=== PATIENT | female | born 1950 | race Two or more races ===

== ENCOUNTER 2018-10-12 05:30 | Day surgery (SDC) | payer OTHER ==
[~2018-10-12 05:30] MED LIST: ATIVAN2 M1 PO; LOSARTAN-HCTZ1 EAC1 PO; PAXIL20 MG PO; ZANTAC300 MG PO
[2018-10-12] MEDS ORDERED: ULTRACET PO (12:02)
[2018-10-12] MEDS ORDERED: KEFLEX250 MG PO (12:02)
== END 2018-10-12 15:00 | disposition home or self-care (01) ==
LOC: CIR.AMB 05:30
DX: N39.41 Urge incontinence (principal); N32.81 Overactive bladder
CPT/HCPCS: 64581; C1778

== ENCOUNTER 2022-07-02 11:23 | Outpatient (CLI) | payer OTHER ==
[~2022-07-02 11:23] MED LIST changes: +KEFLEX250 MG PO; +ULTRACET PO
== END 2022-07-02 11:25 | disposition home or self-care (01) ==
LOC: EKG 11:23 → LAB 11:23
PROVIDERS: ATTEND Obstetrics & Gynecology Gynecology
DX: I10 Essential (primary) hypertension (principal); R07.9 Chest pain, unspecified

== ENCOUNTER 2022-07-15 06:03 | Day surgery (SDC) | payer OTHER ==
[~2022-07-15 06:03] MED LIST changes: +ARICEPT10 MG PO; +FLONASE16 GM; +NORVASC10 MG PO; +PROAIR RESPICL90 MCG IH
[2022-07-15] MEDS ORDERED: TRAM1TAB98 PO (10:21)
[2022-07-15] MEDS ORDERED: CEPHALEXIN500 MG PO (10:23)
== END 2022-07-15 12:25 | disposition home or self-care (01) ==
LOC: CIR.AMB 06:03
PROVIDERS: ATTEND Obstetrics & Gynecology Gynecology
DX: N39.41 Urge incontinence (principal); N32.81 Overactive bladder; Z20.822 Contact with and (suspected) exposure to COVID-19; I10 Essential (primary) hypertension; Z86.16 Personal history of COVID-19